=== PATIENT | female | born 1975 | race Caucasian/White ===

== ENCOUNTER 2020-05-04 13:33 | Emergency (ER) | payer OTHER, SELFPAY ==
--- NOTE | ~2020-05-04 | XR_ITS ---
EXAMINATION: XR hand LT min 3V DATE: 05/04/2020 14:16 INDICATION: Left fifth metacarpal pain. Injury. TECHNIQUE: 3 views of left hand were obtained. COMPARISON: None. FINDINGS: Bone alignment is normal. No fracture. 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 IMPRESSION: 1. No fracture. Reviewed, dictated and finalized at location B. IMPRESSION: 1. No fracture.
[2020-05-04 13:55] VITALS: BP 119/78; PULSE 80; RESP 16; TEMP 36.8
--- NOTE | 2020-05-04 13:56 | ED.UPPEXIN ---
HPI - Extremity Injury (Upper) General Chief Complaint: Extremity Injury, Upper Stated Complaint: right wrist pain Time Seen by Provider: 05/04/20 13:56 Source: patient and RN notes reviewed Mode of arrival: ambulatory Limitations: no limitations History of Present Illness HPI narrative: This is a 44 years old female presented office for evaluations of left hand injury prior to arrival. She accidentally tripped and fell off a truck and landed on both hands and she heard a pop on her left hand. Complains of immediate pain and swelling which has slightly improve since she took ibuprofen and ice. Denies any other injury or trauma. She is right-hand dominant. She is a senior architect/design manager; supposed to start school tomorrow. Related Data Home Medications Medication Instructions Recorded Confirmed No Home Medications 05/04/20 05/04/20 Allergies Allergy/AdvReac Type Severity Reaction Status Date / Time No Known Allergies Allergy Verified 05/04/20 14:00 Review of Systems Review of Systems: Narrative: CONSTITUTIONAL: Denies fever or feeling ill CARDIOVASCULAR: Denies chest pain RESPIRATORY: Denies dyspnea GASTROINTESTINAL: Denies abdominal pain, vomiting. Reports nausea immediately after the accident SKIN: Denies rash MUSCULOSKELETAL: Denies acute back pain NEUROLOGIC: Denies lightheaded/dizziness prior arrival. All other systems reviewed are negative, except as documented in HPI. PMFSH Comments At time of signature, I agree with nursing past medical, surgical, social and family history. There is no relevant family history pertinent to the presenting complaint. Exam Narrative: Exam Narrative: GENERAL: This is a well-nourished, well-developed patient, in no apparent distress. CARDIOVASCULAR: Regular rate and rhythm without murmurs, gallops, or rubs. RESPIRATORY: Clear to auscultation. Breath sounds equal bilaterally. No wheezes, rales, or rhonchi. GASTROINTESTINAL: Abdomen soft, non-tender, nondistended. Bowel sounds are active.No guarding. SKIN: warm, intact with no suspicious lesions or rash, good texture and turgor. NEURO: awake, alert, and oriented to person, place and time. There were no obvious focal neurologic abnormalities. Steady gait EXTREMITIES: Bilateral shoulders and elbows with full range of motion. The dorsum of left hand is diffusely swollen and tender especiall on fifth metarcarpal. The skin is intact. Flexion and extension of the fingers is full and strong. [place] Coma Scale Eye Opening: Spontaneous 4 [place] Coma Scale Motor: Obeys Commands 6 [place] Coma Scale Verbal: Oriented 5 Course Vital Signs Vital signs: Vital Signs Temperature 98.3 F 05/04/20 13:55 Pulse Rate 80 05/04/20 13:55 Respiratory Rate 16 05/04/20 13:55 Blood Pressure 119/78 05/04/20 13:55 Temperature 98.3 F 05/04/20 13:55 Pulse Rate 80 05/04/20 13:55 Respiratory Rate 16 05/04/20 13:55 Blood Pressure 119/78 05/04/20 13:55 MDM - Extremity Injury (Upper) MDM Narrative Medical decision making narrative: Discharge instructions reviewed with patient, as well as provided in writing per nursing staff. The instructions also include specific and strict return/GO TO THE ER as well as f/u information. All questions have been answered, and the patient deny any further questions with discharge and discharge plan. Differential Diagnosis Differential diagnosis: Likely sprain and strain of wrist and fracture of hand Imaging Data Attestation: I personally reviewed and interpreted this imaging study as follows: My impression: see report Radiologist's impression: EXAMINATION: XR hand LT min 3V DATE: 05/04/2020 14:16 INDICATION: Left fifth metacarpal pain. Injury. TECHNIQUE: 3 views of left hand were obtained. COMPARISON: None. FINDINGS: Bone alignment is normal. No fracture. 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 IMPRESSION: 1. No fracture. Critical Care Time Critical Care T
== END 2020-05-04 14:40 | disposition home or self-care (01) ==
PROVIDERS: Emergency Provider Nurse Practitioner
DX: S69.92XA Unspecified injury of left wrist, hand and finger(s), initial encounter (principal); W17.89XA Other fall from one level to another, initial encounter
CPT/HCPCS: 73130; 99203; G0463